=== PATIENT | female | born 2000 | race African-American/Black ===

== ENCOUNTER 2018-07-21 13:04 | Emergency (ER) | payer BC ==
[~2018-07-21] VITALS: Ht 170.2 cm; Wt 113.4 kg
--- NOTE | 2018-07-21 13:57 | PHYS DOC ---
Past Medical History Past Medical History: No Pertinent History Adult General Chief Complaint Chief Complaint: EYE PROBLEMS HPI HPI 17-year-old female presents to ER with complaints of left eye irritation and redness which started on Friday. She reports she was cutting up onions on Friday when the irritation started and symptoms have gradually worsened. Patient reports redness has worsened as well as she wakes every morning with green matting to her left eyelid. Patient denies vision changes, eye pain with movement, or dizziness. Patient wears corrective lenses. Pt denies fever, KRUGER, or flu like illness. LMP 07/07/18. Review of Systems Review of Systems Constitutional: Denies fever or chills [] Eyes: Denies change in visual acuity. Reports lt eye redness/irritation with green drainage/matting of eye lid in morning HENT: Denies nasal congestion or sore throat [] Respiratory: Denies cough Cardiovascular: No additional information not addressed in HPI [] GI: Denies nausea, vomiting Musculoskeletal: Denies back/neck pain or joint pain [] Integument: Denies rash or skin lesions [] Neurologic: Denies headache, focal weakness or sensory changes. Denies dizziness All other systems were reviewed and found to be within normal limits, except as documented in this note. Current Medications Current Medications Current Medications Medications (Trade) Dose Ordered Sig/Sharifa Start Time Stop Time Status Last Admin Dose Admin Erythromycin (Romycin) 0.25 inch 1X ONCE 07/21/18 14:00 07/21/18 14:12 DC 07/21/18 14:27 0.25 INCH Fluorescein Sodium (Ful-Rula) 1 strip 1X ONCE 07/21/18 14:00 07/21/18 14:12 DC 07/21/18 14:27 1 STRIP Tetracaine HCl (Tetracaine) 1 drop 1X ONCE 07/21/18 14:00 07/21/18 14:12 DC 07/21/18 14:27 1 DROP Allergies Allergies Allergies Coded Allergies Type Severity Reaction Last Updated Verified No Known Drug Allergies 07/21/18 No Physical Exam Physical Exam Constitutional: Well developed, well nourished, no acute distress, non-toxic appearance. [] HENT: Normocephalic, atraumatic, bilateral ears normal, mucous membranes pink/ moist- no pharyngeal/tonsillar erythema/swelling, no oral exudates, nose normal. [] Eyes: 3 mm PERRLA, EOMI- no c/o eye pain with eye movement, no nystagmus, rt eye NL conjunctiva, lt eye with upper eyelid swelling- able to fully open eyelids- sm. amt green drainage inner corner of eye- no swelling lower lid or inner corner- lt conjunctiva/sclera injected Neck: Normal range of motion, no tenderness, supple, no gross adenopathy Cardiovascular:Heart rate regular rhythm, no murmur [] Lungs & Thorax: Bilateral breath sounds clear to auscultation. Resp. equal/ nonlabored Skin: Warm, dry, no erythema, no rash. [] Extremities: No tenderness, no cyanosis, no clubbing, ROM intact, no edema. [] Neurologic: Alert and oriented X 3, normal motor function, normal sensory function, no focal deficits noted. [] Psychologic: Affect normal, judgement normal, mood normal. [] Current Patient Data Vital Signs Vital Signs Date Time Temp Pulse Resp B/P (MAP) Pulse Ox O2 Delivery O2 Flow Rate FiO2 07/21/18 14:55 57 16 135/51 (79) 97 Room Air 07/21/18 13:51 98.1 98.1 EKG EKG [] Radiology/Procedures Radiology/Procedures Eye Exam w/ persaud lamp: 1425 lt eye Visual Acuity: NL with corrective lenses on Visual Orozco: Intact in all four quadrants bilaterally Lids w/ evertion: Normal with swelling upper/lower with erythema, no foreign body Conj/[place]: Lt Conjunctiva injected, negative Fluorescein uptake cornea/ sclera Course & Med Decision Making Course & Med Decision Making No corneal abrasion was found during persaud lamp exam of left eye. Patient reports irritation improved following tetracaine application. Patient had erythromycin ointment applied prior to discharge. Discussed if symptoms persist or with any vision changes or concerns patient to follow-up with her literacy coach in next 3-5 days. Will provide prescription for erythromycin ointment with discharge paperwork. Educated on signs and symptoms to return to ER for. Discharge instructions were discussed. Dragon Disclaimer Dragon Disclaimer This electronic medical record was generated, in whole or in part, using a voice recognition dictation system. Departure Departure Impression: Primary Impression: Conjunctivitis of left eye Disposition: HOME, SELF-CARE Condition: STABLE Referrals: NO PCP (PCP) Patient Instructions: Conjunctivitis (Viral and Bacterial) Additional Instructions: Avoid rubbing left eye vigorously. If eye is watering blot with tissue. If symptoms persist or with any concerns follow-up with your literacy coach in 3-5 days. Compresses to left eye 3-4 times daily. Re-cleaning right eye with same washcloth that you use on the left eye. Scripts Erythromycin Base (Erythromycin) 1 Gm Oint...g. 1 GM OP QID for 5 Days, MISC 0 Refills 0.5% 1/2" to lower left eyelid QID for 5 days Prov: BK DÍAZ APRN 07/21/18 BK DÍAZ APRN Jul 21, 2018 13:56
[2018-07-21] MEDS ORDERED: ERYTHROMYCIN 0.5% OPHTH OINTMENT 1GM TUBE. OS ONE (14:00)
[2018-07-21] MEDS ORDERED: FLUORESCEIN OPHTH TEST STRIP. OS ONE (14:00)
[2018-07-21] MEDS ORDERED: TETRACAINE 0.5% OPHTH SOLUTION 4ML BOTTLE. OS ONE (14:00)
[2018-07-21] MEDS ORDERED: ERYT1OIN6 OP (14:44)
[2018-07-21 14:55] VITALS: BP 135/51
== END 2018-07-21 14:58 | disposition home or self-care (01) ==
LOC: ER 13:04
DX: H10.9 Unspecified conjunctivitis (principal)
CPT/HCPCS: 99283

== ENCOUNTER 2019-08-28 23:21 | Emergency (ER) | payer SELFPAY ==
[~2019-08-28] VITALS: Ht 170.2 cm; Wt 104.3 kg
[~2019-08-28 23:21] MED LIST: ERYT1OIN6 OP
[2019-08-28 23:30] VITALS: BP 148/82
[2019-08-29] MEDS ORDERED: SILV20CR14 TP (01:20)
[2019-08-29] MEDS ORDERED: IBUPROFEN 200 MG TABLET. PO ONE (02:00)
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
== END 2019-08-29 01:50 | disposition home or self-care (01) ==
LOC: ER 23:21
DX: T21.52XA Corrosion of first degree of abdominal wall, initial encounter (principal); V89.2XXA Person injured in unspecified motor-vehicle accident, traffic, initial encounter; Y93.89 Activity, other specified; Y92.89 Other specified places as the place of occurrence of the external cause; Y99.8 Other external cause status
CPT/HCPCS: 99283

== ENCOUNTER 2022-01-03 13:12 | Emergency (ER) | payer BC ==
[~2022-01-03] VITALS: Ht 170.2 cm; Wt 135.3 kg
[2022-01-03 13:12] VITALS: BP 158/79
[~2022-01-03 13:12] MED LIST changes: +SILV20CR14 TP
--- NOTE | 2022-01-03 13:39 | PHYS DOC ---
Past Medical History Past Medical History: No Pertinent History Past Surgical History: No Surgical History Smoking Status: Never Smoker Alcohol Use: None Drug Use: None General Adult EDM: Chief Complaint: PELVIC PAIN HPI: HPI: Patient is a 21 year old female with no significant medical history presented to the ED today complaining of a cramping 2 out of 10 intermittent pelvic pain, symptoms of been going on since Friday. Patient denies anything relieving the symptoms but states urinating exacerbates the symptoms. Denies any back pain. She states she does not know if she is or not but her menstrual cycle is supposed to start anytime today LMP was December 01 2021. She states she is trying to be . Denies any nausea, vomiting, fever. Denies any concerns for STDs or unusual discharge. Review of Systems: Review of Systems: Constitutional: Denies fever or chills. [] Eyes: Denies change in visual acuity. [] HENT: Denies nasal congestion or sore throat. [] Respiratory: Denies cough or shortness of breath. [] Cardiovascular: Denies chest pain or edema. [] GI: Reports pelvic pain, denies nausea, vomiting, bloody stools or diarrhea. [] : Denies dysuria. [] Musculoskeletal: Denies back pain or joint pain. [] Integument: Denies rash. [] Neurologic: Denies headache, focal weakness or sensory changes. [] Psychiatric: Denies depression or anxiety. [] Heart Score: C/O Chest Pain: N/A Risk Factors: Risk Factors: DM, Current or recent (<one month) smoker, HTN, HLP, family hist ory of CAD, obesity. Risk Scores: Score 0 - 3: 2.5% MACE over next 6 weeks - Discharge Home Score 4 - 6: 20.3% MACE over next 6 weeks - Admit for Clinical Observation Score 7 - 10: 72.7% MACE over next 6 weeks - Early Invasive Strategies Allergies: Allergies: Allergies Coded Allergies Type Severity Reaction Last Updated Verified No Known Drug Allergies 07/21/18 No Physical Exam: PE: Constitutional: Well developed, well nourished, no acute distress, non-toxic appearance. [] HENT: Normocephalic, atraumatic, bilateral external ears normal, oropharynx moist, no oral exudates, nose normal. [] Eyes: PERRLA, EOMI, conjunctiva normal, no discharge. [] Neck: Normal range of motion, no tenderness, supple, no stridor. [] Cardiovascular:Heart rate regular rhythm, no murmur [] Lungs & Thorax: Bilateral breath sounds clear to auscultation [] Abdomen: Bowel sounds normal, soft, no tenderness, no masses, no pulsatile masses. [] Skin: Warm, dry, no erythema, no rash. [] Back: No tenderness, no CVA tenderness. [] Extremities: No tenderness, no cyanosis, no clubbing, ROM intact, no edema. [] Neurologic: Alert and oriented X 3, normal motor function, normal sensory functi on, no focal deficits noted. [] Psychologic: Affect normal, judgement normal, mood normal. [] Current Patient Data: Labs: Laboratory Tests Test 01/03/22 13:32 POC Urine HCG, Qualitative Hcg positive (Negative) Vital Signs: Vital Signs Date Time Temp Pulse Resp B/P (MAP) Pulse Ox O2 Delivery O2 Flow Rate FiO2 01/03/22 13:12 98.3 104 18 158/79 (105) 99 Room Air 98.3 EKG: EKG: [] Radiology/Procedures: Radiology/Procedures: []PROCEDURE: OB TRANSVAG US OB TRANSVAGINAL History: Reason: abd pain in / Spl. Instructions: / History: Comparison: None Technique: Grayscale and color Doppler imaging of the pelvis was performed using transvaginal technique. Findings: The uterus measures 6.6 x 4.3 x 4.1 cm. Uterus has an unremarkable appearance. No evidence of intrauterine gestational sac. Endometrial measures 8 mm. Right ovary measures 3.0 x 2.3 x 1.8 cm. Left ovary measures 2.5 x 1.9 x 1.6 cm. Dominant right ovarian follicle measures 1.5 cm. Normal Doppler flow to the ovaries. No adnexal masses are seen. Small pelvic free fluid, likely physiologic. IMPRESSION: 1. No evidence of intrauterine gestational sac, may relate to early . Recommend short-term ultrasound follow-up and serial beta-hCG testing. Electronically signed by: Chrissy Hunt DO (01/03/2022 3:09 PM) [id number] DICTATED and SIGNED BY: HCRISSY HUNT DO DATE: 01/03/22 1507 Course & Med Decision Making: Course & Med Decision Making Pertinent Labs and Imaging studies reviewed. (See chart for details) This a 21-year-old female patient presented to the ED today with pelvic pain that began on Friday. Positive urine hCG, beta-hCG 241, CBC with a WBC of 12.4, hemoglobin 11.9, hematocrit is normal. UA negative for infection. OB ultrasound no evidence of intrauterine gestational sac, may relate to early . Recommend short-term ultrasound follow-up and serial beta-hCG testing. Results discussed with patient. Recommended following up with an CAR ICER in the next 7 days. Patient agreed to the plan of care. She was provided return precautions especially the need to return to the ED at any point her pain worsens or she has vaginal bleeding. Dragon Disclaimer: Wize Disclaimer: This electronic medical record was generated, in whole or in part, using a voice recognition dictation system. Departure Departure Impression: Primary Impression: Qualified Codes: Z3A.01 - Less than 8 weeks gestation of Additional Impression: Abdominal pain in Qualified Codes: O26.891 - Other specified related conditions, first trimester; R10.9 - Unspecified abdominal pain Disposition: 01 HOME / SELF CARE / HOMELESS Condition: STABLE Referrals: NO PCP (PCP) JEAN-PIERRE HUNT MD Call his office and follow-up as soon as you can Patient Instructions: ABCs of Additional Instructions: Congratulations you are !! This is an early . Start taking vitamins. Please follow-up with your CAR ICER as soon as you can. You can take Tylenol for pain, do not take Motrin. Come back to the ED at any point symptoms worsen QASIM [employer] Jan 03, 2022 13:39
[2022-01-03 14:04] LABS: BACTERIA,URINE 0 /HPF (0-FEW); RBC,URINE OCC /HPF (0-2); WBC,URINE OCC /HPF (0-4)
[2022-01-03 14:06] LABS: BASO # 0.1 x10^3/uL (0.0-0.2); BASO % 1 % (0-3); EOS # 0.1 x10^3/uL (0.0-0.7); EOS % 1 % (0-3); HEMATOCRIT 37.4 % (36.0-47.0); HEMOGLOBIN 11.9 g/dL (12.0-15.5); LYMPH # 2.7 x10^3/uL (1.0-4.8); LYMPH % 22 % (24-48); MEAN CORPUSCULAR HEMOGLOBIN 26 pg (25-35); MEAN CORPUSCULAR HGB CONC 32 g/dL (31-37); MEAN CORPUSCULAR VOLUME 82 fL (79-100); MONO # 0.5 x10^3/uL (0.0-1.1); MONO % 4 % (0-9); NEUT % 73 % (31-73); PLATELET COUNT 339 x10^3/uL (140-400); RED BLOOD COUNT 4.56 x10^6/uL (3.50-5.40); RED CELL DISTRIBUTION WIDTH 15.1 % (11.5-14.5); WHITE BLOOD COUNT 12.4 x10^3/uL (4.0-11.0)
[2022-01-03 14:22] LABS: CALCIUM 9.3 mg/dL (8.5-10.1); CREATININE 0.8 mg/dL (0.6-1.0); GFR 107.6; POTASSIUM 3.7 mmol/L (3.5-5.1)
[2022-01-03 14:27] LABS: ALBUMIN 3.8 g/dL (3.4-5.0); ALBUMIN/GLOBULIN RATIO 0.9 (1.0-1.7); TOTAL BILIRUBIN 0.3 mg/dL (0.2-1.0)
--- NOTE | 2022-01-03 15:12 | RAD ---
US OB TRANSVAGINAL History: Reason: abd pain in / Spl. Instructions: / History: Comparison: None Technique: Grayscale and color Doppler imaging of the pelvis was performed using transvaginal technHelixbind ue. Findings: The uterus measures 6.6 x 4.3 x 4.1 cm. Uterus has an unremarkable appearance. No evidence of intrauterine gestational sac. Endometrial measures 8 mm. Right ovary measures 3.0 x 2.3 x 1.8 cm. Left ovary measures 2.5 x 1.9 x 1.6 cm. Dominant right ovarian follicle measures 1.5 cm. Normal Doppler flow to the ovaries. No adnexal masses are seen. Small pelvic free fluid, likely physi ologic. IMPRESSION: 1. No evidence of intrauterine gestational sac, may relate to early . Recommend short-term ultrasound follow-up and serial beta-hCG testing. Electronically signed by: Himanshu Mason DO (01/03/2022 3:09 PM) [id number]
== END 2022-01-03 15:44 | disposition home or self-care (01) ==
LOC: ER 13:12
DX: O26.891 Other specified pregnancy related conditions, first trimester (principal); R10.9 Unspecified abdominal pain; R10.2 Pelvic and perineal pain; Z3A.01 Less than 8 weeks gestation of pregnancy
CPT/HCPCS: 36415; 76817; 80053; 81001; 81025; 84702; 85025; 99284-25